=== PATIENT | male | born 1995 | race Caucasian/White ===

== ENCOUNTER 2022-09-19 18:34 | Outpatient (REF) | payer SELFPAY ==
[2022-09-20 15:51] LABS: CT PCR DETECTED (Not Detect.); NG PCR NOT DETECTED (Not Detect.)
== END 2022-09-19 18:35 | disposition home or self-care (01) ==
LOC: HO.LNP 18:34
PROVIDERS: Visit Provider Internal Medicine
DX: Z11.3 Encounter for screening for infections with a predominantly sexual mode of transmission (principal)
CPT/HCPCS: 87491; 87591

== ENCOUNTER 2023-10-12 08:53 | Outpatient (AMB) | payer SELFPAY ==
--- NOTE | 2023-10-12 10:22 | MHC.OFFWIV ---
Intake Vital Signs 10/12/23 10:22 10/12/23 11:02 Height 6 ft 7 in Respiration 14 Pulse 82 Pulse Source Auscultation Intake Visit Reasons: EST/STD Testing/[phone] Intake Note: pt is here today for STD testing started 2 days ago Allergies No Known Allergies Allergy (Verified 10/12/23 10:25) Do you need a note to return to daycare/school/sports/work: No HPI HPI Comments History of Present Illness Details 1031 28-year-old male presents with burning on urination, yellow/green peniile d/c patient is concerned about STD due to significant other not being faithful. No history of this in the past. He reports he has got tested in the past and test results have been negative. Denies flank pain, nausea, vomiting, abdominal pain, fevers, chills, joint pain, headache, vision changes, chest pain and shortness of breath Physical exam benign History and physical exam concerning for UTI versus STD. Will test for gonorrhea and chlamydia. Due to high suspicion due to girlfriend not being faithful and patient having symptoms will prophylactically treat for gonorrhea and chlamydia as well as Trichomonas Patient agrees to prophylactic treatment for gonorrhea, chlamydia and trichomonas. 500mg IM ceftriaxone has been given here and scripts for doxycycline 100 mg po BID X 7 days and metronidazole 500 mg po BID X 7 days have been given to the patient. Educated on safe sex practices, full pannel STD testing and speaking to? partners on possible STD. [facility] Surgical History No pertinent past surgical history Family History Father Medical history non-contributory Mother Medical history non-contributory Paternal Aunt Breast cancer Diabetes mellitus Sister No problems noted. Review of Systems Const Details: Constitutional : No Weight loss, No Fever, No Chills, No Fatigue, No Malaise ENT/Mouth : No sore throat, No Rhinorrhea Eyes: No Eye Pain, No Swelling, No Redness Cardiovascular : No Chest Pain, No SOB, No Dyspnea on Exertion, No Orthopnea, No Edema, No Palpitations Respiratory : No Cough, No Sputum, No Wheezing Gastrointestinal : No Nausea, No Vomiting, No Diarrhea, No Constipation, No abdominal Pain, No Hematochezia, No Melena Genitourinary : + Dysuria, No Urinary Frequency, No Hematuria, Musculoskeletal : No joint pain, No Myalgias, No Joint Swelling Skin : No Skin Lesions, No rash Neuro : No Weakness, No Numbness, No Dizziness, No Headache Psych : No Anxiety/Panic, No Depression All other systems reviewed and are negative All systems reviewed & are unremarkable except as noted in HPI and below Physical Exam Vital Signs: vss Appearance: Alert.? Oriented X3.? No acute distress.? Head: Normocephalic, atraumatic, no step-offs or deformities Eyes: Pupils equal, round and reactive to light.? CVS: Normal heart rate and rhythm.? Pulses normal.? Respiratory: No respiratory distress.? Breath sounds normal.? Abdomen: Soft and nontender.? Skin: Skin warm and dry.? Normal skin color.? Normal skin turgor.? Extremities: No lower extremity edema.? No calf ttp. 5/5 strength to bilateral upper and lower extremities Neuro: Oriented X 3.? No motor deficit.? No sensory deficit. CN 2-12 intact Office Meds ceftriaxone 500 mg solution for injection Performing Provider: JERROD Burgos Performing Location: [facility] Administered by: JERROD Burgos on 10/12/23 11:00 Dose Route Admin Location Dispensed Lot Number Expiration Date [facility] Bag [employer] 500 mg IM L [id number] 03/05/25 Assessment & Plan Assessment & Plan (1) Screen for STD (sexually transmitted disease): Code(s): Z11.3 - Encounter for screening for infections with a predominantly sexual mode of transmission Plan Take your medications as prescribed. If you were prescribed antibiotics today, it is important that you take your medication to their entirety, do not skip any doses, do not finish them early. Follow-up with your primary care provider this week. Return to the emergency department with new or worsening symptoms. Such as fevers, chills, chest pain, shortness of breath, nausea, vomiting, dizziness, headache, vision changes, lethargy In case of emergency call 911 You were treated here today with ceftriaxone, a medication that treats gonorrhea. I have sent to your pharmacy Metronidazole that covers trichomonas, and Doxycycline which covers for chlamydia. Please be reevaluated by a healthcare provider after completing your antibiotics. Do not stop them early, do not skip any doses. Until you are reevaluated by a health care provider please practice safe sex as disucussed. Please also have a conversation with your sexual partners.? I also advise you to obtain full panel STD testing to test for other STDs including HIV, Hepatitis B & C and syphilis with your PCP or a local clinic. Orders: Orders AMB Ceftriaxone Injection Today Z11.3 - Encounter for screening for infections with a predominantly sexual mode of transmission Medications: New metronidazole 500 mg PO BID 14 tabs 0RF 7 days doxycycline hyclate 100 mg PO BID 14 caps 0RF 7 days Coding Level of Care Code Est Pt Level 3 (52947) Diagnoses Screen for STD (sexually transmitted disease) Z11.3
[2023-10-12 11:02] VITALS: PULSE 82; RESP 14
== END 2023-10-12 12:13 | disposition home or self-care (01) ==
PROVIDERS: Visit Provider Physician Assistant
DX: R30.9 Painful micturition, unspecified (principal); R36.9 Urethral discharge, unspecified; Z11.3 Encounter for screening for infections with a predominantly sexual mode of transmission
CPT/HCPCS: 81003; 96372; 99213; J0696

== ENCOUNTER 2023-10-12 11:58 | Outpatient (REF) | payer SELFPAY ==
[2023-10-13 06:12] LABS: CT PCR NOT DETECTED (Not Detect.); NG PCR DETECTED (Not Detect.)
== END 2023-10-12 11:59 | disposition home or self-care (01) ==
LOC: HO.LNP 11:58
PROVIDERS: Visit Provider Physician Assistant
DX: Z20.2 Contact with and (suspected) exposure to infections with a predominantly sexual mode of transmission (principal)
CPT/HCPCS: 0353U